=== PATIENT | female | born 1965 | race Caucasian/White ===

== ENCOUNTER 2017-12-26 15:25 | Inpatient (IN) | payer OTHER ==
[~2017-12-26] VITALS: Ht 149.9 cm; Wt 52.9 kg
[~2017-12-26 15:25] MED LIST: ACET325 PO; ATOR20 PO; BENTYL10 MG MT; CHOL10002 PO; CYCL10 PO; Estradiol1 MG PO; FERR325 PO; FOLI400 PO; IMODIUM MULTI-1 EAC1; LEVSOD50 PO; LISI5 PO; MECL12.5 PO; METO50ER MT; MVI WITH IRON PO; OMEPRAZOLE MAGN20 MG PO; PROM25 PO; SULI200 PO
[2017-12-26] MEDS ORDERED: Cyclobenzaprine5 MG PO (15:41)
[2017-12-26] MEDS ORDERED: NAPR500 PO (15:42)
[2017-12-26 16:01] LABS: BASOPHILS ABSOLUTE AUTO 0.05 K/mm3 (0.00-0.23); BASOPHILS PERCENT AUTO 0 % (0-2); EOSINOPHILS ABSOLUTE AUTO 0.01 K/mm3 (0.00-0.68); EOSINOPHILS PERCENT AUTO 0 % (0-6); Hematocrit 32.4 % (33.0-51.0); Hemoglobin 10.6 g/dL (11.5-16.0); IMMATURE GRAN ABSOLUTE AUTO 0.46 K/mm3 (0.00-0.10); IMMATURE GRAN PERCENT AUTO 3 % (0-1); LYMPHOCYTES ABSOLUTE AUTO 1.14 K/mm3 (0.84-5.20); LYMPHOCYTES PERCENT AUTO 7 % (21-46); MONOCYTES ABSOLUTE AUTO 1.32 K/mm3 (0.16-1.47); MONOCYTES PERCENT AUTO 8 % (4-13); Mean Corpuscular HGB 29.4 pg (26.0-34.0); Mean Corpuscular HGB Conc 32.7 g/dL (31.5-36.5); Mean Corpuscular Volume 90 fL (80-100); Mean Platelet Volume 8.7 fL (9.1-12.4); NEUTROPHILS ABSOLUTE AUTO 13.42 K/mm3 (1.96-9.15); NEUTROPHILS PERCENT AUTO 82 % (41-73); Platelet Count 572 K/mm3 (150-400); RDW Coefficient Variation 13.5 % (11.7-14.2)
[2017-12-26 16:15] LABS: Anion Gap 8 mmol/L (6-16); Blood Urea Nitrogen 22 mg/dL (8-24); CO2, Blood 26 mmol/L (21-32); Calcium, Blood 8.5 mg/dL (8.5-10.1); Chloride, Blood 92 mmol/L (98-108); Creatinine, Blood 1.47 mg/dL (0.40-1.00); Ethanol (Alcohol), Blood, Med <3 mg/dL; Glomerular Filtration Rate 40 (60-); Glucose, Blood 106 mg/dL (70-99); Potassium, Blood 5.2 mmol/L (3.5-5.5); Sodium, Blood 126 mmol/L (136-145)
[2017-12-27 05:55] LABS: BASOPHILS ABSOLUTE AUTO 0.04 K/mm3 (0.00-0.23); BASOPHILS PERCENT AUTO 0 % (0-2); EOSINOPHILS PERCENT AUTO 0 % (0-6); Hematocrit 28.6 % (33.0-51.0); Hemoglobin 9.1 g/dL (11.5-16.0); IMMATURE GRAN ABSOLUTE AUTO 0.32 K/mm3 (0.00-0.10); IMMATURE GRAN PERCENT AUTO 3 % (0-1); LYMPHOCYTES ABSOLUTE AUTO 1.25 K/mm3 (0.84-5.20); LYMPHOCYTES PERCENT AUTO 11 % (21-46); MONOCYTES ABSOLUTE AUTO 0.83 K/mm3 (0.16-1.47); MONOCYTES PERCENT AUTO 7 % (4-13); Mean Corpuscular HGB Conc 31.8 g/dL (31.5-36.5); Mean Corpuscular Volume 91 fL (80-100); Mean Platelet Volume 8.9 fL (9.1-12.4); NEUTROPHILS ABSOLUTE AUTO 9.48 K/mm3 (1.96-9.15); NEUTROPHILS PERCENT AUTO 80 % (41-73); Platelet Count 499 K/mm3 (150-400); RDW Coefficient Variation 13.5 % (11.7-14.2); RDW Standard Deviation 45.1 fL (35.1-46.3); Red Blood Cell Count 3.14 M/mm3 (3.80-5.20); White Blood Cell Count 11.92 K/mm3 (4.00-11.30)
[2017-12-27 06:30] LABS: Bun/Creatinine Ratio 13.9 (12.0-20.0); Calcium, Blood 7.9 mg/dL (8.5-10.1); Creatinine, Blood 1.37 mg/dL (0.40-1.00); Potassium, Blood 5.1 mmol/L (3.5-5.5)
[2017-12-28 05:27] LABS: BASOPHILS ABSOLUTE AUTO 0.06 K/mm3 (0.00-0.23); BASOPHILS PERCENT AUTO 1 % (0-2); EOSINOPHILS PERCENT AUTO 0 % (0-6); Hematocrit 28.8 % (33.0-51.0); Hemoglobin 9.1 g/dL (11.5-16.0); IMMATURE GRAN ABSOLUTE AUTO 0.29 K/mm3 (0.00-0.10); IMMATURE GRAN PERCENT AUTO 3 % (0-1); LYMPHOCYTES ABSOLUTE AUTO 2.15 K/mm3 (0.84-5.20); LYMPHOCYTES PERCENT AUTO 19 % (21-46); MONOCYTES ABSOLUTE AUTO 1.01 K/mm3 (0.16-1.47); MONOCYTES PERCENT AUTO 9 % (4-13); Mean Corpuscular HGB 29.1 pg (26.0-34.0); Mean Corpuscular HGB Conc 31.6 g/dL (31.5-36.5); Mean Corpuscular Volume 92 fL (80-100); Mean Platelet Volume 8.7 fL (9.1-12.4); NEUTROPHILS ABSOLUTE AUTO 7.84 K/mm3 (1.96-9.15); NEUTROPHILS PERCENT AUTO 69 % (41-73); Platelet Count 502 K/mm3 (150-400); RDW Coefficient Variation 13.4 % (11.7-14.2); RDW Standard Deviation 45.3 fL (35.1-46.3); Red Blood Cell Count 3.13 M/mm3 (3.80-5.20); White Blood Cell Count 11.35 K/mm3 (4.00-11.30)
[2017-12-28 05:45] LABS: Bun/Creatinine Ratio 8.4 (12.0-20.0); Calcium, Blood 7.8 mg/dL (8.5-10.1); Creatinine, Blood 1.19 mg/dL (0.40-1.00); Potassium, Blood 3.9 mmol/L (3.5-5.5)
[2017-12-28 08:32] LABS: ANA Negative (NEG); Myeloperoxidase Antibody <0.2 AI (<1.0)
[2017-12-28 18:56] LABS: ANCA <1:20
[2018-01-01 05:33] LABS: BASOPHILS ABSOLUTE AUTO 0.01 K/mm3 (0.00-0.23); BASOPHILS PERCENT AUTO 0 % (0-2); EOSINOPHILS PERCENT AUTO 0 % (0-6); Hematocrit 33.2 % (33.0-51.0); Hemoglobin 10.6 g/dL (11.5-16.0); IMMATURE GRAN ABSOLUTE AUTO 0.25 K/mm3 (0.00-0.10); IMMATURE GRAN PERCENT AUTO 2 % (0-1); LYMPHOCYTES ABSOLUTE AUTO 1.33 K/mm3 (0.84-5.20); LYMPHOCYTES PERCENT AUTO 9 % (21-46); MONOCYTES ABSOLUTE AUTO 1.33 K/mm3 (0.16-1.47); MONOCYTES PERCENT AUTO 9 % (4-13); Mean Corpuscular HGB 28.6 pg (26.0-34.0); Mean Corpuscular HGB Conc 31.9 g/dL (31.5-36.5); Mean Corpuscular Volume 90 fL (80-100); Mean Platelet Volume 8.8 fL (9.1-12.4); NEUTROPHILS PERCENT AUTO 80 % (41-73); Platelet Count 500 K/mm3 (150-400); RDW Coefficient Variation 13.3 % (11.7-14.2); RDW Standard Deviation 43.8 fL (35.1-46.3); Red Blood Cell Count 3.71 M/mm3 (3.80-5.20); White Blood Cell Count 14.32 K/mm3 (4.00-11.30)
[2018-01-01 06:01] LABS: Bun/Creatinine Ratio 20.5 (12.0-20.0); C-REACTIVE PROTEIN, EXT RANGE 1.39 mg/dL (0.000-0.300); Calcium, Blood 8.9 mg/dL (8.5-10.1); Creatinine, Blood 1.32 mg/dL (0.40-1.00); Potassium, Blood 4.2 mmol/L (3.5-5.5)
[2018-01-01 06:05] LABS: Thyroid Stimulating Hormone 0.688 uIU/mL (0.360-4.800)
[2018-01-01 08:05] LABS: 25-OH Vitamin D, Total 15.6 ng/mL (24.0-80.0)
[2018-01-01] MEDS ORDERED: ACET325 PO (13:43)
[2018-01-01] MEDS ORDERED: BISA10S PR (13:44)
[2018-01-01] MEDS ORDERED: Calcitonin-Sal3.7 ML (13:44)
[2018-01-01] MEDS ORDERED: DOCU100 PO (13:45)
[2018-01-01] MEDS ORDERED: FENT50TP TOP (13:45)
[2018-01-01] MEDS ORDERED: LORA1 PO (13:46)
[2018-01-01] MEDS ORDERED: LIDO700A20 TOP (13:46)
[2018-01-01] MEDS ORDERED: PRED20 PO (13:47)
[2018-01-01] MEDS ORDERED: MIRALAX17 GM PO (13:48)
[2018-01-01] MEDS ORDERED: TRAM50 PO (13:49)
== END 2018-01-01 16:05 | DRG 543 ==
LOC: ER 15:25 → MEDS 15:26 → ER 15:26 → MEDS 15:26 → ER 19:48 → MEDS 19:53 → ER 12-29 06:59 → MEDS 12-29 06:59 → ER 12-29 07:00 → MEDS 12-29 07:00
PROVIDERS: Emergency Medicine; Family Medicine; Hospitalist; Internal Medicine
DX: M84.48XA Pathological fracture, other site, initial encounter for fracture (principal); R64 Cachexia; E87.1 Hypo-osmolality and hyponatremia; F10.20 Alcohol dependence, uncomplicated; M47.9 Spondylosis, unspecified; M48.00 Spinal stenosis, site unspecified; K52.9 Noninfective gastroenteritis and colitis, unspecified; I12.9 Hypertensive chronic kidney disease with stage 1 through stage 4 chronic kidney disease, or unspecified chronic kidney disease; N18.3 Chronic kidney disease, stage 3 (moderate); F17.200 Nicotine dependence, unspecified, uncomplicated; D72.829 Elevated white blood cell count, unspecified; N28.9 Disorder of kidney and ureter, unspecified; D51.0 Vitamin B12 deficiency anemia due to intrinsic factor deficiency; E03.9 Hypothyroidism, unspecified; K21.9 Gastro-esophageal reflux disease without esophagitis; Z88.5 Allergy status to narcotic agent; Z68.21 Body mass index [BMI] 21.0-21.9, adult; Z88.0 Allergy status to penicillin; Z79.1 Long term (current) use of non-steroidal anti-inflammatories (NSAID); Z79.890 Hormone replacement therapy; Z79.52 Long term (current) use of systemic steroids; Z79.899 Other long term (current) drug therapy
CPT/HCPCS: 36415; 72100; 72158; 80048; 82306; 82330; 83516; 83970; 84145; 84443; 85025; 85651; 86038; 86140; 86256; 87040; 96374; 96376; 97110; 97116; 97162; 97166; 97530; 97535; 99285; A9577; G0480; G8978; G8979; G8987; G8988; J0630; J0696; J1170; J1650; J1885; J3010; J3370; J7030

== ENCOUNTER 2018-01-26 11:03 | Emergency (ER) | payer OTHER ==
[~2018-01-26] VITALS: Ht 154.9 cm; Wt 44.5 kg
[~2018-01-26 11:03] MED LIST changes: +BISA10S PR; +Calcitonin-Sal3.7 ML; +Cyclobenzaprine5 MG PO; +DOCU100 PO; +FENT50TP TOP; +LIDO700A20 TOP; +LORA1 PO; +MIRALAX17 GM PO; +NAPR500 PO; +PRED20 PO; +TRAM50 PO
[2018-01-26] MEDS ORDERED: MORP30 PO (11:40)
[2018-01-26] MEDS ORDERED: Oxycodone-Apap1 EAC3 PO (11:42)
[2018-01-26] MEDS ORDERED: ONDA4 PO (11:43)
[2018-01-26 11:45] LABS: BASOPHILS PERCENT AUTO 1 % (0-2); EOSINOPHILS PERCENT AUTO 0 % (0-6); Hematocrit 36.5 % (33.0-51.0); Hemoglobin 11.6 g/dL (11.5-16.0); IMMATURE GRAN ABSOLUTE AUTO 0.11 K/mm3 (0.00-0.10); IMMATURE GRAN PERCENT AUTO 1 % (0-1); LYMPHOCYTES ABSOLUTE AUTO 2.13 K/mm3 (0.84-5.20); LYMPHOCYTES PERCENT AUTO 15 % (21-46); MONOCYTES ABSOLUTE AUTO 1.42 K/mm3 (0.16-1.47); MONOCYTES PERCENT AUTO 10 % (4-13); Mean Corpuscular HGB 28.8 pg (26.0-34.0); Mean Corpuscular HGB Conc 31.8 g/dL (31.5-36.5); Mean Corpuscular Volume 91 fL (80-100); Mean Platelet Volume 8.9 fL (9.1-12.4); NEUTROPHILS ABSOLUTE AUTO 10.49 K/mm3 (1.96-9.15); NEUTROPHILS PERCENT AUTO 74 % (41-73); Platelet Count 659 K/mm3 (150-400); RDW Coefficient Variation 13.2 % (11.7-14.2); RDW Standard Deviation 43.9 fL (35.1-46.3); Red Blood Cell Count 4.03 M/mm3 (3.80-5.20); White Blood Cell Count 14.25 K/mm3 (4.00-11.30)
[2018-01-26 12:02] LABS: Bun/Creatinine Ratio 6.5 (12.0-20.0); Calcium, Blood 8.9 mg/dL (8.5-10.1); Creatinine, Blood 3.07 mg/dL (0.40-1.00)
[2018-01-26] MEDS ORDERED: LEVFLO500 PO (13:30)
== END 2018-01-26 15:36 | disposition home or self-care (01) ==
LOC: ER 11:03
PROVIDERS: Emergency Medicine
DX: E86.0 Dehydration (principal); R11.2 Nausea with vomiting, unspecified; N18.4 Chronic kidney disease, stage 4 (severe); Z88.0 Allergy status to penicillin; Z88.5 Allergy status to narcotic agent; Z79.899 Other long term (current) drug therapy; Z79.52 Long term (current) use of systemic steroids; D64.9 Anemia, unspecified; F17.210 Nicotine dependence, cigarettes, uncomplicated
CPT/HCPCS: 36415; 80048; 85025; 96361; 96374; 96375; 99283; J0696; J2405; J7030

== ENCOUNTER 2018-01-30 11:20 | Inpatient (IN) | payer OTHER ==
[~2018-01-30] VITALS: Ht 149.9 cm; Wt 44.6 kg
[~2018-01-30 11:20] MED LIST changes: -NITR100CA PO; -ONE DAILY COMP1 EACH PO; -SODBIC650 PO
[2018-01-30 12:25] LABS: BASOPHILS ABSOLUTE AUTO 0.07 K/mm3 (0.00-0.23); BASOPHILS PERCENT AUTO 0 % (0-2); EOSINOPHILS PERCENT AUTO 0 % (0-6); Hematocrit 38.2 % (33.0-51.0); Hemoglobin 11.6 g/dL (11.5-16.0); IMMATURE GRAN ABSOLUTE AUTO 0.17 K/mm3 (0.00-0.10); IMMATURE GRAN PERCENT AUTO 1 % (0-1); LYMPHOCYTES ABSOLUTE AUTO 1.75 K/mm3 (0.84-5.20); LYMPHOCYTES PERCENT AUTO 9 % (21-46); MONOCYTES ABSOLUTE AUTO 2.84 K/mm3 (0.16-1.47); MONOCYTES PERCENT AUTO 15 % (4-13); Mean Corpuscular HGB 28.3 pg (26.0-34.0); Mean Corpuscular HGB Conc 30.4 g/dL (31.5-36.5); Mean Corpuscular Volume 93 fL (80-100); Mean Platelet Volume 9.3 fL (9.1-12.4); NEUTROPHILS ABSOLUTE AUTO 14.08 K/mm3 (1.96-9.15); NEUTROPHILS PERCENT AUTO 74 % (41-73); Platelet Count 619 K/mm3 (150-400); RDW Coefficient Variation 13.6 % (11.7-14.2); RDW Standard Deviation 46.1 fL (35.1-46.3); White Blood Cell Count 18.91 K/mm3 (4.00-11.30)
[2018-01-30 12:43] LABS: Albumin, Blood 3.4 g/dL (3.4-5.0); Albumin/Globulin Ratio 0.7 (0.8-1.8); Bilirubin, Total 0.7 mg/dL (0.1-1.0); Bun/Creatinine Ratio 6.5 (12.0-20.0); Calcium, Blood 9.2 mg/dL (8.5-10.1); Creatinine, Blood 3.22 mg/dL (0.40-1.00); Free Thyroxine 1.49 ng/dL (0.70-1.60); Globulin, Blood 4.6 g/dL (2.2-4.0); Magnesium, Blood 1.7 mg/dL (1.6-2.4); Potassium, Blood 4.4 mmol/L (3.5-5.5)
[2018-01-30 12:48] LABS: Thyroid Stimulating Hormone 6.18 uIU/mL (0.360-4.800)
[2018-01-30 12:48] LABS: Source, Urine Clean Catch
[2018-01-30 12:52] LABS: Appearance, Urine Hazy (Clear); Blood, Urine 1+ (Neg); Color, Urine Yellow (P-Yellow); Glucose Qualitative, Urine Neg (Neg); Ketones, Urine 2+ (Neg); Leukocyte Esterase, Urine 3+ (Neg); Nitrite, Urine Neg (Neg); Protein, Urine 2+ (Neg); Specific Gravity, Urine 1.025 (1.003-1.022); Urobilinogen, Urine 1+ (Normal)
[2018-01-30 13:10] LABS: Bilirubin, Urine 2+ (Neg)
[2018-01-30 13:16] LABS: Bacteria Few /hpf; Squamous Epithelial Cells Many /hpf (Few)
[2018-01-30 13:19] LABS: Yeast/Fungi Urine Few /hpf
[2018-01-30 13:20] LABS: Renal Epithelial Few /hpf (0-Rare); Transitional Epithelial Cells Few /hpf (0-Rare)
[2018-01-30] MEDS ORDERED: LISI5 PO (16:07)
[2018-01-30] MEDS ORDERED: ONE DAILY COMP1 EACH PO (16:09)
[2018-01-30] MEDS ORDERED: SODBIC650 PO (16:11)
[2018-02-01 08:07] LABS: BASOPHILS ABSOLUTE AUTO 0.07 K/mm3 (0.00-0.23); BASOPHILS PERCENT AUTO 1 % (0-2); EOSINOPHILS PERCENT AUTO 0 % (0-6); Hematocrit 26.7 % (33.0-51.0); Hemoglobin 8.6 g/dL (11.5-16.0); IMMATURE GRAN ABSOLUTE AUTO 0.06 K/mm3 (0.00-0.10); IMMATURE GRAN PERCENT AUTO 1 % (0-1); LYMPHOCYTES ABSOLUTE AUTO 1.37 K/mm3 (0.84-5.20); LYMPHOCYTES PERCENT AUTO 16 % (21-46); MONOCYTES ABSOLUTE AUTO 1.17 K/mm3 (0.16-1.47); MONOCYTES PERCENT AUTO 14 % (4-13); Mean Corpuscular HGB Conc 32.2 g/dL (31.5-36.5); Mean Platelet Volume 8.8 fL (9.1-12.4); NEUTROPHILS ABSOLUTE AUTO 5.81 K/mm3 (1.96-9.15); NEUTROPHILS PERCENT AUTO 69 % (41-73); Platelet Count 404 K/mm3 (150-400); RDW Coefficient Variation 13.6 % (11.7-14.2); RDW Standard Deviation 44.8 fL (35.1-46.3); Red Blood Cell Count 2.97 M/mm3 (3.80-5.20); White Blood Cell Count 8.48 K/mm3 (4.00-11.30)
[2018-02-01 08:16] LABS: Mean Corpuscular Volume 90 fL (80-100)
[2018-02-01 08:19] LABS: Bun/Creatinine Ratio 6.1 (12.0-20.0); Calcium, Blood 8.3 mg/dL (8.5-10.1); Creatinine, Blood 1.15 mg/dL (0.40-1.00); Potassium, Blood 3.7 mmol/L (3.5-5.5)
[2018-02-01 13:19] LABS: Vancomycin, Random 8.8 ug/mL
[2018-02-02 04:08] LABS: BASOPHILS ABSOLUTE AUTO 0.07 K/mm3 (0.00-0.23); BASOPHILS PERCENT AUTO 1 % (0-2); EOSINOPHILS PERCENT AUTO 0 % (0-6); Hematocrit 28.1 % (33.0-51.0); Hemoglobin 9.3 g/dL (11.5-16.0); IMMATURE GRAN ABSOLUTE AUTO 0.05 K/mm3 (0.00-0.10); IMMATURE GRAN PERCENT AUTO 1 % (0-1); LYMPHOCYTES ABSOLUTE AUTO 2.12 K/mm3 (0.84-5.20); LYMPHOCYTES PERCENT AUTO 23 % (21-46); MONOCYTES PERCENT AUTO 14 % (4-13); Mean Corpuscular HGB Conc 33.1 g/dL (31.5-36.5); Mean Corpuscular Volume 88 fL (80-100); NEUTROPHILS ABSOLUTE AUTO 5.74 K/mm3 (1.96-9.15); NEUTROPHILS PERCENT AUTO 62 % (41-73); Platelet Count 445 K/mm3 (150-400); RDW Coefficient Variation 13.4 % (11.7-14.2); RDW Standard Deviation 42.9 fL (35.1-46.3); Red Blood Cell Count 3.21 M/mm3 (3.80-5.20); White Blood Cell Count 9.28 K/mm3 (4.00-11.30)
[2018-02-02 04:31] LABS: Anion Gap 10 mmol/L (6-16); Blood Urea Nitrogen 4 mg/dL (8-24); Bun/Creatinine Ratio 3.9 (12.0-20.0); CO2, Blood 24 mmol/L (21-32); Calcium, Blood 7.8 mg/dL (8.5-10.1); Chloride, Blood 104 mmol/L (98-108); Creatinine, Blood 1.02 mg/dL (0.40-1.00); Glomerular Filtration Rate >60 (60-); Glucose, Blood 82 mg/dL (70-99); Potassium, Blood 3.4 mmol/L (3.5-5.5); Sodium, Blood 138 mmol/L (136-145)
[2018-02-02 12:07] LABS: Adenovirus F 40/41 Not Detected (NOT DETECT); Astrovirus Not Detected (NOT DETECT); Campylobacter Sp Not Detected (NOT DETECT); Cryptosporidium Not Detected (NOT DETECT); Cyclospora Cayetanensis Not Detected (NOT DETECT); E. Coli O157 Not Detected (NOT DETECT); Entamoeba Histolytica Not Detected (NOT DETECT); Enteroaggregative E. coli-EAEC Not Detected (NOT DETECT); Enteropathogenic E. coli-EPEC Not Detected (NOT DETECT); Enterotoxigenic E. coli-ETEC Not Detected (NOT DETECT); Giardia Lamblia Not Detected (NOT DETECT); Plesiomonas Shigelloides Not Detected (NOT DETECT); Salmonella Sp Not Detected (NOT DETECT); Shiga Toxin-prod E. coli-STEC Not Detected (NOT DETECT); Shigella/Enteroin E. coli-EIEC Not Detected (NOT DETECT); Vibrio Cholerae Not Detected (NOT DETECT); Vibrio Sp Not Detected (NOT DETECT); Yersinia Enterocolitica Not Detected (NOT DETECT)
[2018-02-02 12:08] LABS: Norovirus GI/GII Not Detected (NOT DETECT); Rotavirus A Not Detected (NOT DETECT); Sapovirus Not Detected (NOT DETECT)
[2018-02-03 05:11] LABS: Anion Gap 7 mmol/L (6-16); Blood Urea Nitrogen 3 mg/dL (8-24); CO2, Blood 25 mmol/L (21-32); Calcium, Blood 7.8 mg/dL (8.5-10.1); Chloride, Blood 105 mmol/L (98-108); Creatinine, Blood 0.99 mg/dL (0.40-1.00); Glomerular Filtration Rate >60 (60-); Glucose, Blood 89 mg/dL (70-99); Magnesium, Blood 1.2 mg/dL (1.6-2.4); Potassium, Blood 3.4 mmol/L (3.5-5.5); Sodium, Blood 137 mmol/L (136-145)
[2018-02-04 05:38] LABS: Bun/Creatinine Ratio 2.6 (12.0-20.0); Calcium, Blood 8.5 mg/dL (8.5-10.1); Creatinine, Blood 1.15 mg/dL (0.40-1.00); Magnesium, Blood 1.6 mg/dL (1.6-2.4)
[2018-02-04] MEDS ORDERED: NITR100CA PO (11:10)
== END 2018-02-04 18:22 | DRG 872 ==
LOC: ER 11:20 → MEDS 14:15 → PCU 01-31 11:39 → MEDS 02-02 15:48 → ENPENDDIS 02-04 10:00 → MEDS 02-04 18:22
PROVIDERS: Emergency Medicine; Internal Medicine; Pharmacist
DX: A41.9 Sepsis, unspecified organism (principal); N39.0 Urinary tract infection, site not specified; N17.9 Acute kidney failure, unspecified; F10.239 Alcohol dependence with withdrawal, unspecified; E44.1 Mild protein-calorie malnutrition; Z68.1 Body mass index [BMI] 19.9 or less, adult; B95.2 Enterococcus as the cause of diseases classified elsewhere; E86.0 Dehydration; F17.210 Nicotine dependence, cigarettes, uncomplicated; E03.9 Hypothyroidism, unspecified; D51.0 Vitamin B12 deficiency anemia due to intrinsic factor deficiency; I12.9 Hypertensive chronic kidney disease with stage 1 through stage 4 chronic kidney disease, or unspecified chronic kidney disease; N18.9 Chronic kidney disease, unspecified; M47.9 Spondylosis, unspecified; M48.00 Spinal stenosis, site unspecified; K59.00 Constipation, unspecified; G89.29 Other chronic pain; R26.2 Difficulty in walking, not elsewhere classified; E87.6 Hypokalemia; E83.42 Hypomagnesemia; Z88.5 Allergy status to narcotic agent; Z88.0 Allergy status to penicillin; Z79.1 Long term (current) use of non-steroidal anti-inflammatories (NSAID); Z79.890 Hormone replacement therapy; Z79.891 Long term (current) use of opiate analgesic; Z79.899 Other long term (current) drug therapy
CPT/HCPCS: 36415; 51701; 71045; 80048; 80053; 80202; 81001; 83605; 83735; 84439; 84443; 85025; 87040; 87077; 87086; 87186; 87507; 93005; 93010; 94760; 96361; 96365; 96366; 97110; 97162; 97530; 99285; G8978; G8979; J0630; J1650; J1956; J2060; J3370; J3475; J7030; J7120

== ENCOUNTER → 2018-01-30 | Outpatient (CLI) | payer OTHER ==
[~2018-01-30] MED LIST changes: +LEVFLO500 PO; +MORP30 PO; +NITR100CA PO; +ONDA4 PO; +ONE DAILY COMP1 EACH PO; +Oxycodone-Apap1 EAC3 PO; +SODBIC650 PO
== END | disposition home or self-care (01) ==
LOC: LAB RH 07:10 → EDSTATUS 14:04
PROVIDERS: Family Medicine
DX: N18.4 Chronic kidney disease, stage 4 (severe) (principal); D63.1 Anemia in chronic kidney disease; N25.81 Secondary hyperparathyroidism of renal origin; E55.9 Vitamin D deficiency, unspecified; E78.00 Pure hypercholesterolemia, unspecified; R76.9 Abnormal immunological finding in serum, unspecified; R94.5 Abnormal results of liver function studies; R94.6 Abnormal results of thyroid function studies
CPT/HCPCS: 84166; 86335

== ENCOUNTER → 2018-06-12 | Outpatient (CLI) | payer OTHER ==
[~2018-06-12] MED LIST changes: +NITR100CA PO; +ONE DAILY COMP1 EACH PO; +SODBIC650 PO
== END | disposition home or self-care (01) ==
LOC: LAB SHORT 15:06 → LAB 15:06 → LAB FUT 05-30 16:35
DX: R19.7 Diarrhea, unspecified (principal)
CPT/HCPCS: 87177; 87209

== ENCOUNTER → 2019-08-29 | Outpatient (CLI) | payer OTHER | LOC: LAB SHORT 15:31 → LAB 15:31 | DX: N18.3 Chronic kidney disease, stage 3 (moderate) (principal) | CPT/HCPCS: 82043 ==

== ENCOUNTER → 2019-09-15 | Outpatient (CLI) | payer OTHER ==
[2019-09-18 01:07] LABS: HPV 16 Negative (Negative); HPV 18 Negative (Negative); HPV OTHER HR TYPES Negative (Negative)
== END ==
LOC: LAB 15:52 → LAB SHORT 15:52
PROVIDERS: Nurse Practitioner Family
DX: Z12.4 Encounter for screening for malignant neoplasm of cervix (principal)
CPT/HCPCS: 87070; 87205

== ENCOUNTER → 2019-09-24 | Outpatient (CLI) | payer OTHER ==
[2019-09-24 21:03] LABS: Protein, Urine Random <5.0 mg/dL (0.0-11.9)
== END | disposition home or self-care (01) ==
LOC: LAB 17:54 → LAB SHORT 17:54
PROVIDERS: Internal Medicine
DX: N18.3 Chronic kidney disease, stage 3 (moderate) (principal)
CPT/HCPCS: 82570; 84156

== ENCOUNTER → 2021-12-29 | Outpatient (CLI) | payer OTHER ==
[~2021-12-29] MED LIST changes: +ACET500 PO; +ASPI81CH PO; +ESTRADIOL2 MG PO; +LEVSOD25 PO; +OMEP20ER PO; +OXYC5 PO; +Prinivil10 MG PO
== END | disposition home or self-care (01) ==
LOC: LAB SHORT 17:33 → LAB 17:33
DX: I10 Essential (primary) hypertension (principal)
CPT/HCPCS: 82043

== ENCOUNTER 2023-10-09 09:36 | Day surgery (SDC) | payer OTHER ==
[~2023-10-09] VITALS: Ht 149.9 cm; Wt 34.5 kg
[~2023-10-09 09:36] MED LIST changes: +B-12 COMPL1000 MCG/2; +LIDO700A20; +PROLIA60 MG/1 ML; -Prinivil10 MG PO; +TRIA15CR3
[2023-10-09] MEDS ORDERED: FOLI1 (10:13)
[2023-10-09] MEDS ORDERED: FERSU300 (10:14)
[2023-10-09 11:16] VITALS: BP 154/83
== END 2023-10-09 11:36 | disposition home or self-care (01) ==
LOC: ORSCSDS 09:36
PROVIDERS: Student in an Organized Health Care Education/Training Program
PROC: 08RK3JZ Replacement of Left Lens with Synthetic Substitute, Percutaneous Approach (ICD-10-PCS; principal; 2023-10-09 11:00)
DX: H25.12 Age-related nuclear cataract, left eye (principal); E78.5 Hyperlipidemia, unspecified; J44.9 Chronic obstructive pulmonary disease, unspecified; K21.9 Gastro-esophageal reflux disease without esophagitis; I12.9 Hypertensive chronic kidney disease with stage 1 through stage 4 chronic kidney disease, or unspecified chronic kidney disease; N18.30 Chronic kidney disease, stage 3 unspecified; Z79.899 Other long term (current) drug therapy; Z87.891 Personal history of nicotine dependence
CPT/HCPCS: J2250; J3010; J7040; V2632

== ENCOUNTER 2023-10-19 06:20 | Day surgery (SDC) | payer OTHER ==
[~2023-10-19] VITALS: Ht 149.9 cm; Wt 34.8 kg
[~2023-10-19 06:20] MED LIST changes: +FERSU300; +FOLI1
--- NOTE | 2023-10-19 07:07 | NUR ---
10/19/23 0707 Kimmy Berman PROPARACAINE PLACED ON RIGHT EYE AT 0655. PLEDGET PLACED IN RIGHT EYE AT 0656. PATIENT TOLERATED WELL.
[2023-10-19 08:18] VITALS: BP 162/88
== END 2023-10-19 08:29 | disposition home or self-care (01) ==
LOC: ORSCSDS 06:20
PROVIDERS: Student in an Organized Health Care Education/Training Program
PROC: 08RJ3JZ Replacement of Right Lens with Synthetic Substitute, Percutaneous Approach (ICD-10-PCS; principal; 2023-10-19 08:00)
DX: H25.11 Age-related nuclear cataract, right eye (principal); Z96.1 Presence of intraocular lens; I12.9 Hypertensive chronic kidney disease with stage 1 through stage 4 chronic kidney disease, or unspecified chronic kidney disease; N18.30 Chronic kidney disease, stage 3 unspecified; E78.5 Hyperlipidemia, unspecified; K21.9 Gastro-esophageal reflux disease without esophagitis; F17.210 Nicotine dependence, cigarettes, uncomplicated; Z79.899 Other long term (current) drug therapy
CPT/HCPCS: J2001; J2250; J3010; J7040; V2632

== ENCOUNTER → 2024-04-19 | Outpatient (CLI) | payer OTHER ==
[2024-04-22 12:42] LABS: C DIFFICILE DNA NEGATIVE (Negative)
== END ==
LOC: LAB SHORT 15:10 → LAB 15:10 → LAB FUT 04-16 10:30
PROVIDERS: Physician Assistant
DX: R19.7 Diarrhea, unspecified (principal)
CPT/HCPCS: 87015; 87045; 87046; 87205; 87493; 87899